=== PATIENT | female | born 1970 | race African-American/Black ===

== ENCOUNTER 2017-04-01 20:40 | Emergency (ER) | payer OTHER ==
[~2017-04-01] VITALS: Ht 160 cm; Wt 58.5 kg
--- NOTE | ~2017-04-01 | EKG ---
[address] [address] ELECTROCARDIOGRAM REPORT Name: JULIO RUSSELL Room #: [id number] Admission: 04/01/17 Attend Phys: Discharge: 04/01/17 Date of : 66 Report #: [id number] THIS REPORT FOR: //name// [facility] ED Test Date: 2017-04-01 Test Time: 21:20:36 Pat Name: JULIO RUSSELL Department: Room: Gender: F Residential Program Worker: MELINA : 1970 Requested By: Polo Ventura Order Number: [id number] MD: Antonio Triana Measurements Intervals [place] Rate: 122 P: 60 GA: 158 QRS: 6 QRSD: 89 T: 189 QT: 256 QTc: 365 Interpretive Statements Sinus tachycardia Nonspecific repol abnormality, diffuse leads No previous ECG available for comparison Electronically Signed On 04-03-2017 7:31:30 TRAINMAN by Antonio Triana [email or web address] <ELECTRONICALLY SIGNED> By: Antonio Triana MD, [facility] 04/03/17 0731 212 19 Antonio Triana MD, FACC /EPI
[2017-04-01] MEDS ORDERED: LISINOPRIL10 MG PO (21:05)
[2017-04-01] MEDS ORDERED: LOPRESSOR50 PO (21:05)
[2017-04-01] MEDS ORDERED: HYDROCHLOROTHIA25 M2 PO (21:06)
[2017-04-01 21:16] LABS: URINE BILIRUBIN NEGATIVE (Negative); URINE BLOOD 3+ (Negative); URINE CLARITY SL CLOUDY; URINE COLOR YELLOW; URINE GLUCOSE-RANDOM* NEGATIVE (Negative); URINE KETONES TRACE (Negative); URINE LEUKOCYTES NEGATIVE (Negative); URINE NITRITE NEGATIVE (Negative); URINE PROTEIN (DIPSTICK) 1+ (Negative); URINE SPECIFIC GRAVITY >= 1.030 (1.005-1.035); URINE UROBILINOGEN 0.2 E.U./dl (0.2-1.0)
[2017-04-01 21:38] LABS: MUCUS 0-3 Light strn/LPF (None Seen); SQUAMOUS >10 Many /LPF (0-3)
[2017-04-01 21:39] LABS: FINE GRANULAR CASTS 0-3 Few /LPF (None Seen); HYALINE CASTS 0-3 Few /LPF (None Seen)
[2017-04-01 21:40] LABS: BACTERIA 1-9 Few /HPF (None Seen); CRYSTALS None Seen /LPF (None Seen); TRANSITIONAL EPITHEL CELL 0-3 Few /LPF (None Seen); URINE WBC None Seen /HPF (0-5)
[2017-04-01 21:49] LABS: HEMATOCRIT 39.6 % (37.0-47.0); HEMOGLOBIN 13.5 gm/dL (12.0-15.0); MCH 31.5 pg (26.0-34.0); MCHC 34.1 g/dL (28.0-37.0); MCV 92.4 fL (80.0-100.0); PLATELET COUNT 233 thou/uL (150-400); RBC 4.28 mil/uL (4.20-5.00); RDW 13.4 % (10.5-14.5); WBC 6.4 thou/uL (4.0-11.0)
[2017-04-01 21:56] LABS: ANION GAP 9 mmol/L (7-16); BUN 13 mg/dL (7-18); CO2 30 mmol/L (21-32); GLUCOSE 176 mg/dL (74-106); SODIUM 140 mmol/L (136-145)
[2017-04-01 21:58] LABS: POTASSIUM 2.8 mmol/L (3.5-5.1)
[2017-04-01 21:59] LABS: CHLORIDE 101 mmol/L (98-107)
[2017-04-01 22:05] LABS: ALBUMIN 3.5 g/dL (3.4-5.0); MAGNESIUM 2.1 mg/dL (1.8-2.4); SGOT 23 U/L (15-37); SGPT 23 U/L (30-65); TOTAL BILIRUBIN 0.3 mg/dL (<0.1-1.0); TOTAL PROTEIN 7.3 g/dL (6.4-8.2); TROPONIN-I < 0.04 ng/mL (<0.06)
[2017-04-01 22:09] LABS: ABSOLUTE NEUTROPHILS 3.8 thou/uL (1.4-8.2); ATYPICAL LYMPHS 12 %
[2017-04-01] MEDS ORDERED: POTASSIUM20 PO (22:30)
== END 2017-04-01 22:58 | disposition home or self-care (01) ==
LOC: ER 20:40
PROVIDERS: Emergency Medicine
DX: R55 Syncope and collapse (principal); R31.9 Hematuria, unspecified; E87.6 Hypokalemia; J06.9 Acute upper respiratory infection, unspecified; I10 Essential (primary) hypertension

== ENCOUNTER 2020-10-12 01:24 | Emergency (ER) | payer OTHER ==
[~2020-10-12] VITALS: Ht 160 cm; Wt 61.2 kg
[~2020-10-12 01:24] MED LIST: HYDROCHLOROTHIA25 M2 PO; LISINOPRIL10 MG PO; LOPRESSOR50 PO; POTASSIUM20 PO
[2020-10-12 03:40] LABS: HEMATOCRIT 33.9 % (37.0-47.0); HEMOGLOBIN 11.8 gm/dL (12.0-15.0); MCH 32.6 pg (26.0-34.0); MCHC 34.9 g/dL (28.0-37.0); MCV 93.3 fL (80.0-100.0); RBC 3.63 mil/uL (4.20-5.00); WBC 9.5 thou/uL (4.0-11.0)
[2020-10-12 03:53] LABS: ALBUMIN 3.5 g/dL (3.4-5.0); CREATININE 1.1 mg/dL (0.6-1.0); POTASSIUM 3.2 mmol/L (3.5-5.1); TOTAL BILIRUBIN 0.4 mg/dL (0.2-1.0); TOTAL PROTEIN 7.1 g/dL (6.4-8.2)
[2020-10-12 04:01] LABS: APTT 24.6 Seconds (24.5-32.8); PROTIME 10.9 Seconds (10.5-12.1)
[2020-10-12 05:32] VITALS: BP 123/68
== END 2020-10-12 05:55 ==
LOC: ER 01:24
PROVIDERS: Emergency Medicine
DX: N93.8 Other specified abnormal uterine and vaginal bleeding (principal); I10 Essential (primary) hypertension; F12.90 Cannabis use, unspecified, uncomplicated; Z79.899 Other long term (current) drug therapy; Z90.710 Acquired absence of both cervix and uterus